=== PATIENT | female | born 1950 | race Caucasian/White ===

== ENCOUNTER 2021-08-12 18:50 | Inpatient (IN) ==
[2021-08-12 19:55] LABS: Basophils % 0.3 % (0.0-0.8); Eosinophils % 0.2 % (0.00-10.9); Hematocrit 43.6 VOL% (35.7-47.0); Immature Granulocytes Absolute 0.06 #; Lymphocytes # 1.1 10*3/uL (1.4-4.0); Lymphocytes % 18.8 % (21.3-54.2); Mean Corpuscular HGB Conc 32.1 GM/DL (32-36); Mean Corpuscular Volume 85.5 FL (87-102); Mean Platelet Volume 10.2 FL (9.6-12.0); Monocytes % 12.2 % (1.7-12.7); Neutrophils % 67.5 % (38.7-73.9); Platelet Count 247 T/CUMM (130-400); Red Cell Distribution Width 15.3 % (9.3-17.3); White Blood Count 5.8 T/CUMM (4-12)
[2021-08-12 20:13] LABS: Albumin 3.1 G/DL (3.4-5.0); Bilirubin,Total 0.5 MG/DL (0.20-1.00); Calcium 8.6 MG/DL (8.5-10.1); Osmolality,Calculated 277.7 MOS/KG (273-304); Potassium 3.4 MMOL/L (3.5-5.1); Total Protein 6.9 G/DL (6.4-8.2)
[2021-08-12 20:26] LABS: Atypical Lymphocytes Few; Band Neutrophils 6 % (0-10); Lymphocytes 14 % (20-55); Segmented Neutrophils 73 % (50-85); Total Cells Counted 100
[2021-08-12 20:27] LABS: Anisocytosis Slight; Microcytosis Slight; Platelet Estimate Normal
[2021-08-12] MEDS ORDERED: ALBUTEROL/IPRATROPIUM 3 ML NEB RESP TX STA (20:39)
[2021-08-12] MEDS ORDERED: DEXTROSE 50% 25 GM/50 ML VIAL IV PRN (21:00)
[2021-08-12] MEDS ORDERED: MELATONIN 3 MG TABLET PO PRN (21:00)
[2021-08-12] MEDS ORDERED: ACETAMINOPHEN 325 MG TABLET PO PRN (21:00)
[2021-08-12] MEDS ORDERED: ONDANSETRON 4 MG/2 ML VIAL IV PRN (21:00)
[2021-08-12] MEDS ORDERED: AZITHROMYCIN INJ 500 MG in SODIUM CHLORIDE 0.9% 250 ML IV ONE (21:00)
[2021-08-12] MEDS ORDERED: GLUCAGON 1 MG VIAL IM PRN (21:00)
[2021-08-12] MEDS ORDERED: DEXAMETHASONE 4 MG/1 ML VIAL IV STA (21:02)
[2021-08-12] MEDS: ASCORBIC ACID 500 MG TABLET PO SCH (22:14)
[2021-08-12] MEDS: FAMOTIDINE 20 MG TABLET PO SCH (22:14)
[2021-08-12] MEDS: ENOXAPARIN 40 MG/0.4 ML SYRINGE SUBCUT SCH (22:14)
[2021-08-13 06:45] LABS: Basophils % 0.6 % (0.0-0.8); Hematocrit 42.2 VOL% (35.7-47.0); Hemoglobin 13.6 GM/DL (12.0-16.0); Immature Granulocytes % 1.7 %; Immature Granulocytes Absolute 0.06 #; Lymphocytes # 0.8 10*3/uL (1.4-4.0); Lymphocytes % 20.9 % (21.3-54.2); Mean Corpuscular HGB Conc 32.2 GM/DL (32-36); Mean Corpuscular Volume 86.8 FL (87-102); Mean Platelet Volume 9.7 FL (9.6-12.0); Monocytes % 3.1 % (1.7-12.7); Neutrophils % 73.7 % (38.7-73.9); Platelet Count 211 T/CUMM (130-400); Red Blood Count 4.86 MC/CUMM (3.8-5.5); Red Cell Distribution Width 15.3 % (9.3-17.3); White Blood Count 3.6 T/CUMM (4-12)
[2021-08-13 07:07] LABS: Albumin 2.7 G/DL (3.4-5.0); Bilirubin,Total 0.8 MG/DL (0.20-1.00); Calcium 8.2 MG/DL (8.5-10.1); Ferritin 398.2 ng/mL (8-252); Osmolality,Calculated 278.7 MOS/KG (273-304); Potassium 3.7 MMOL/L (3.5-5.1); Total Protein 6.4 G/DL (6.4-8.2)
[2021-08-13] MEDS ORDERED: ZINC GLUCONATE 50 MG TABLET PO SCH (09:00)
[2021-08-13] MEDS ORDERED: DEXAMETHASONE 4 MG/1 ML VIAL IV SCH (09:00)
[2021-08-13] MEDS ORDERED: CHOLECALCIFEROL 1,000 UNIT TABLET PO SCH (09:00)
[2021-08-13] MEDS ORDERED: PANTOPRAZOLE 40 MG TABLET PO SCH (09:00)
[2021-08-13] MEDS: LACTATED RINGERS 1,000 ML IV SCH ×2 (09:20→19:34)
[2021-08-13] MEDS: IVERMECTIN 3 MG TABLET PO SCH (09:21)
[2021-08-13] MEDS: ASCORBIC ACID 500 MG TABLET PO SCH ×2 (09:22→21:20)
[2021-08-13] MEDS: ZINC GLUCONATE 50 MG TABLET PO SCH (09:22)
[2021-08-13] MEDS: FAMOTIDINE 20 MG TABLET PO SCH ×2 (09:22→21:20)
[2021-08-13] MEDS: CETIRIZINE 10 MG TABLET PO SCH (09:25)
[2021-08-13] MEDS: CHOLECALCIFEROL 5,000 UNIT TABLET PO SCH ×2 (09:25→21:20)
[2021-08-13] MEDS ORDERED: methylPREDNISolone SOD SUC 40 MG/1 ML VIAL ONE (16:02)
[2021-08-13] MEDS: methylPREDNISolone SOD SUC 40 MG/1 ML VIAL IV SCH ×2 (16:06→22:32)
[2021-08-13] MEDS: ENOXAPARIN 40 MG/0.4 ML SYRINGE SUBCUT SCH (21:20)
[2021-08-13] MEDS: MELATONIN 3 MG TABLET PO SCH (21:20)
[2021-08-13] MEDS: QUEtiapine 25 MG TABLET PO SCH (21:20)
[2021-08-14 05:43] LABS: Hematocrit 39.2 VOL% (35.7-47.0); Hemoglobin 12.5 GM/DL (12.0-16.0); Immature Granulocytes % 2.7 %; Immature Granulocytes Absolute 0.13 #; Lymphocytes # 1.1 10*3/uL (1.4-4.0); Lymphocytes % 23.1 % (21.3-54.2); Mean Corpuscular HGB Conc 31.9 GM/DL (32-36); Mean Corpuscular Volume 86.2 FL (87-102); Mean Platelet Volume 10.2 FL (9.6-12.0); Monocytes % 6.5 % (1.7-12.7); Neutrophils % 67.7 % (38.7-73.9); Platelet Count 227 T/CUMM (130-400); Red Blood Count 4.55 MC/CUMM (3.8-5.5); Red Cell Distribution Width 15.3 % (9.3-17.3); White Blood Count 4.8 T/CUMM (4-12)
[2021-08-14 06:02] LABS: Calcium 8.5 MG/DL (8.5-10.1); Ferritin 362.6 ng/mL (8-252); Osmolality,Calculated 281.7 MOS/KG (273-304); Potassium 3.7 MMOL/L (3.5-5.1)
[2021-08-14] MEDS: LACTATED RINGERS 1,000 ML IV SCH ×2 (06:08→16:05)
[2021-08-14] MEDS: methylPREDNISolone SOD SUC 40 MG/1 ML VIAL IV SCH ×2 (06:26→16:06)
[2021-08-14] MEDS: CHOLECALCIFEROL 5,000 UNIT TABLET PO SCH ×2 (08:01→20:45)
[2021-08-14] MEDS: IVERMECTIN 3 MG TABLET PO SCH (08:01)
[2021-08-14] MEDS: CETIRIZINE 10 MG TABLET PO SCH (08:01)
[2021-08-14] MEDS: ZINC GLUCONATE 50 MG TABLET PO SCH (08:01)
[2021-08-14] MEDS: ASCORBIC ACID 500 MG TABLET PO SCH ×2 (08:01→20:45)
[2021-08-14] MEDS: FAMOTIDINE 20 MG TABLET PO SCH ×2 (08:01→20:45)
[2021-08-14] MEDS: hydrALAZINE 20 MG/1 ML VIAL IV PRN (18:34)
[2021-08-14] MEDS: QUEtiapine 25 MG TABLET PO SCH (20:45)
[2021-08-14] MEDS: ENOXAPARIN 40 MG/0.4 ML SYRINGE SUBCUT SCH (20:45)
[2021-08-14] MEDS: MELATONIN 3 MG TABLET PO SCH (20:45)
[2021-08-15] MEDS: methylPREDNISolone SOD SUC 40 MG/1 ML VIAL IV SCH ×2 (00:36→08:05)
[2021-08-15] MEDS: LACTATED RINGERS 1,000 ML IV SCH (02:03)
[2021-08-15] MEDS: FAMOTIDINE 20 MG TABLET PO SCH (08:05)
[2021-08-15] MEDS: CETIRIZINE 10 MG TABLET PO SCH (08:06)
[2021-08-15] MEDS: CHOLECALCIFEROL 5,000 UNIT TABLET PO SCH (08:06)
[2021-08-15] MEDS: ASCORBIC ACID 500 MG TABLET PO SCH (08:06)
[2021-08-15] MEDS: IVERMECTIN 3 MG TABLET PO SCH (08:06)
[2021-08-15] MEDS: ZINC GLUCONATE 50 MG TABLET PO SCH (08:06)
[2021-08-15 12:14] VITALS: BP 171/89
[2021-08-15] MEDS: hydrALAZINE 20 MG/1 ML VIAL IV PRN (12:15)
== END 2021-08-15 13:20 | disposition home or self-care (01) | DRG 177 ==
LOC: N.ED 18:50 → N.EDINP 21:00 → N.2E 22:11
PROVIDERS: ADMIT Internal Medicine; ATTEND Internal Medicine